=== PATIENT | female | born 1935 | race Caucasian/White ===

== ENCOUNTER 2018-04-03 16:48 | Emergency (ER) | payer MEDICARE ==
[~2018-04-03] VITALS: Ht 142.2 cm; Wt 63.5 kg
[2018-04-03 17:17] VITALS: BP 108/66
== END 2018-04-03 22:20 | disposition home or self-care (01) ==
LOC: ER 16:55
DX: S09.90XA Unspecified injury of head, initial encounter (principal); S43.492A Other sprain of left shoulder joint, initial encounter; S73.192A Other sprain of left hip, initial encounter; M19.90 Unspecified osteoarthritis, unspecified site; J45.909 Unspecified asthma, uncomplicated; I25.810 Atherosclerosis of coronary artery bypass graft(s) without angina pectoris; J44.9 Chronic obstructive pulmonary disease, unspecified; E78.5 Hyperlipidemia, unspecified; I10 Essential (primary) hypertension; E07.9 Disorder of thyroid, unspecified; Z95.0 Presence of cardiac pacemaker; W18.39XA Other fall on same level, initial encounter; Y93.89 Activity, other specified; Y99.8 Other external cause status; Y92.090 Kitchen in other non-institutional residence as the place of occurrence of the external cause
CPT/HCPCS: 70450; 73030; 73502; 93005